=== PATIENT | female | born 1955 | race Caucasian/White ===

== ENCOUNTER 2022-04-11 15:17 | Inpatient (IN) | payer BC ==
[~2022-04-11] VITALS: Ht 165.1 cm; Wt 66.7 kg
[2022-04-11] MEDS ORDERED: HEPARIN/D5W DRIP 500 ML IV PRN (17:15)
[2022-04-11 17:53] LABS: CREATININE 0.8 mg/dL (0.6-1.3); POTASSIUM 4.2 mmol/L (3.5-5.1)
[2022-04-11 18:03] LABS: BILIRUBIN,DIRECT 0.1 mg/dL (0.0-0.2); BILIRUBIN,TOTAL 0.3 mg/dL (0.2-1.0); TOTAL PROTEIN, SERUM 7.2 g/dL (6.4-8.2)
[2022-04-11 18:22] LABS: HEMATOCRIT 34.2 % (31.2-41.9); MEAN CORPUSCULAR HEMOGLOBIN 29.1 uug (24.7-32.8); MEAN CORPUSCULAR VOLUME 87.1 fL (75.5-95.3); PLATELET COUNT (AUTO) 387 K/uL (179-408)
[2022-04-11] MEDS ORDERED: ENOXAPARIN SODIUM 80 MG/0.8 ML DISP.SYRIN SQ ONE ×2 (19:00→19:23)
--- NOTE | 2022-04-11 19:00 | NUR ---
Assumed care of patient from day shift RN.
--- NOTE | 2022-04-11 19:30 | NUR ---
Patient came into the ER, reported she was seen by her mill operator today, was told to go to ER for doppler to rule out DVT.
--- NOTE | 2022-04-11 21:28 | NUR ---
PAGED EPIC PROJECT ADMINISTRATOR FOR ADMISSION, WAITING FOR DR DEVI TO CALL BACK.
--- NOTE | 2022-04-11 21:29 | NUR ---
DR LIZAMA SPEAKING WITH DR DEVI.
--- NOTE | 2022-04-11 22:00 | NUR ---
Spoke to marketing program manager Bri and stated that they will try to transfer patient to [facility]. COVID result fax to Den[facility] per request.
[2022-04-11] MEDS ORDERED: HYDROCODONE/APAP 5-325MG TABLET PO ONE (22:15)
[2022-04-11] MEDS ORDERED: HYDROCODONE/APAP 5-325MG TABLET ONE (22:28)
[2022-04-11] MEDS ORDERED: MAGNESIUM HYDROXIDE 30 ML LIQUID UDC PO PRN (23:15)
[2022-04-11] MEDS ORDERED: REMEDY ESSENTIAL ZINC PASTE 113 GM TP PRN (23:15)
[2022-04-11] MEDS ORDERED: ONDANSETRON 4 MG/2 ML VIAL IV PRN (23:15)
--- NOTE | 2022-04-11 23:23 | NUR ---
Patient now agreeable to be transferred to [facility], informed grain operations manager Bri and will notify Dr. Aguilar.
--- NOTE | 2022-04-11 23:33 | NUR ---
Dr. Hernandez on panel call with Dr. Aguilar.
--- NOTE | 2022-04-12 00:34 | NUR ---
Assisted patient into the toilet.
--- NOTE | 2022-04-12 00:50 | NUR ---
Follow up with special education case manager Lindsey, awaiting for bed at [facility].
--- NOTE | 2022-04-12 01:52 | NUR ---
microbiology lab manager Lindsey called and stated that she is still waiting for [facility] to give her a bed, as they are busy running a code at this time.
--- NOTE | 2022-04-12 02:14 | NUR ---
Dr. Hernandez on bedside.
--- NOTE | 2022-04-12 02:38 | NUR ---
Telephone call from DARREN Portillo, stated that they are still awaiting bed from [facility] and at the same time will have a peer to peer at [facility] ED.
--- NOTE | 2022-04-12 04:10 | NUR ---
[place] from [facility] transfer center called, request peer to peer with Dr. Hernandez. Transfer call to Dr Hernandez.
--- NOTE | 2022-04-12 04:21 | NUR ---
PATIENT ASLEEP AT THIS TIME. APPEARS COMFORTABLE. IN NO APPARENT DISTRESS.
--- NOTE | 2022-04-12 04:44 | NUR ---
Telephone call from Lindsey and stated there are no beds available at [facility] or [facility]. Patient authorized to stay here.
[2022-04-12 07:31] LABS: HEMATOCRIT 36.6 % (31.2-41.9); MEAN CORPUSCULAR HEMOGLOBIN 28.6 uug (24.7-32.8); MEAN CORPUSCULAR VOLUME 87.3 fL (75.5-95.3); PLATELET COUNT (AUTO) 486 K/uL (179-408)
[2022-04-12] MEDS ORDERED: PANTOPRAZOLE SODIUM 40 MG TABLET.DR PO ONE (07:38)
[2022-04-12] MEDS: PANTOPRAZOLE SODIUM 40 MG TABLET.DR PO SCH (07:43)
[2022-04-12 07:44] LABS: CREATININE 0.8 mg/dL (0.6-1.3); PHOSPHOROUS 4.7 mg/dL (2.5-4.9); POTASSIUM 4.5 mmol/L (3.5-5.1)
--- NOTE | 2022-04-12 08:17 | NUR ---
Report given to Julienne OCONNELL. All belongings are with patient as documented. Transferring via gurney to Room 329/Left ED in stable condition. VSS
[2022-04-12 09:56] VITALS: BP 106/61
--- NOTE | 2022-04-12 10:00 | NUR ---
Received pt from ER, pt in bed wit her son at bedside, pt is irritated. States she has no pain but tired of waiting.
[2022-04-12] MEDS: ENOXAPARIN SODIUM 80 MG/0.8 ML DISP.SYRIN SQ SCH ×2 (11:26→21:13)
[2022-04-12 12:30] LABS: IRON, SERUM 28 ug/dL (50-175)
[2022-04-12 12:47] LABS: FERRITIN 134 ng/mL (8-252)
[2022-04-12] MEDS ORDERED: IOHEXOL 350 100 ML INFUS..BTL ONE (13:01)
[2022-04-12] MEDS ORDERED: IV NORMAL SALINE 250 ML IV ONE (13:01)
[2022-04-12] MEDS ORDERED: SWABABLE VALVE TRANSFER SET EA MC ONE (13:01)
--- NOTE | 2022-04-12 13:30 | NUR ---
Patient is in a peaceful mood, all needs re met, states she has no pain, no distress noted. Leia Wallace talked to her about her DVT. Patient is going to CT Angio of chest now.
--- NOTE | 2022-04-12 14:10 | NUR ---
Patient came back from CT angio, I took her orthostatics as was asked by Leia Wallace. lyin/63, p 87. Sitting 121/63, p 95 Standing 99/60, p 95. Leia Wallace recommended to give fluids to the patient. Normal saline 0.9 IV bolus 1000 ml. Will administer now and monitor her blood pressure.
[2022-04-12] MEDS ORDERED: IV NS 1000 ML 1,000 ML IV ONE (14:30)
[2022-04-12] MEDS: HYDROCODONE/APAP 5-325MG TABLET PO PRN ×2 (15:25→21:17)
[2022-04-12 15:54] VITALS: BP 98/61
[2022-04-12 20:00] VITALS: BP 103/48
[2022-04-13 04:00] VITALS: BP 111/59
[2022-04-13] MEDS: PANTOPRAZOLE SODIUM 40 MG TABLET.DR PO SCH (07:03)
[2022-04-13 08:30] VITALS: BP 104/57
[2022-04-13 09:43] LABS: MEAN CORPUSCULAR HEMOGLOBIN 28.6 uug (24.7-32.8); MEAN CORPUSCULAR VOLUME 88.3 fL (75.5-95.3); PLATELET COUNT (AUTO) 524 K/uL (179-408)
[2022-04-13 09:48] LABS: CREATININE 0.8 mg/dL (0.6-1.3); MAGNESIUM 1.9 mg/dL (1.8-2.4); PHOSPHOROUS 3.6 mg/dL (2.5-4.9); POTASSIUM 4.2 mmol/L (3.5-5.1)
[2022-04-13] MEDS: ENOXAPARIN SODIUM 80 MG/0.8 ML DISP.SYRIN SQ SCH ×2 (10:15→22:21)
[2022-04-13 11:58] VITALS: BP 106/69
[2022-04-13] MEDS: FERROUS SULFATE 325 MG TABEC PO SCH ×2 (15:07→22:19)
[2022-04-13 16:07] VITALS: BP 117/72
[2022-04-13 21:20] VITALS: BP 107/54
[2022-04-13] MEDS: HYDROCODONE/APAP 5-325MG TABLET PO PRN (22:34)
[2022-04-14] MEDS: ACETAMINOPHEN 325 MG TABLET PO PRN ×2 (01:21→12:50)
[2022-04-14 04:00] VITALS: BP 120/63
[2022-04-14] MEDS: PANTOPRAZOLE SODIUM 40 MG TABLET.DR PO SCH (06:51)
[2022-04-14 08:28] LABS: HEMATOCRIT 35.8 % (31.2-41.9); MEAN CORPUSCULAR HEMOGLOBIN 28.9 uug (24.7-32.8); PLATELET COUNT (AUTO) 610 K/uL (179-408)
[2022-04-14 08:53] LABS: CREATININE 0.8 mg/dL (0.6-1.3); POTASSIUM 4.2 mmol/L (3.5-5.1)
[2022-04-14] MEDS: FERROUS SULFATE 325 MG TABEC PO SCH (09:33)
[2022-04-14] MEDS: ENOXAPARIN SODIUM 80 MG/0.8 ML DISP.SYRIN SQ SCH (09:34)
[2022-04-14] MEDS ORDERED: APIX5TAB PO (10:55)
[2022-04-14 12:00] VITALS: BP 131/59
--- NOTE | 2022-04-14 13:00 | NUR ---
Pt is discharged. Pt saturates at 96
--- NOTE | 2022-04-14 14:20 | NUR ---
Pt is discharged home, all personal belongings at hand, all discharge education provided. Pt has been wheeled downstairs, picked up by sister. IV and ID bands removed. No signs of acute distress. Pt saturates at 97% on room air.
== END 2022-04-14 13:00 | disposition home or self-care (01) | DRG 299 ==
LOC: ER 15:17 → TRANSITION 04-12 07:16 → MEDSURG3 04-12 08:25
PROVIDERS: ADMIT Registered Nurse; ATTEND Registered Nurse
DX: I82.462 Acute embolism and thrombosis of left calf muscular vein (principal); I26.99 Other pulmonary embolism without acute cor pulmonale; C34.11 Malignant neoplasm of upper lobe, right bronchus or lung; I31.39 Other pericardial effusion (noninflammatory); C79.89 Secondary malignant neoplasm of other specified sites; D75.839 Thrombocytosis, unspecified; E61.1 Iron deficiency; E88.09 Other disorders of plasma-protein metabolism, not elsewhere classified; Z86.73 Personal history of transient ischemic attack (TIA), and cerebral infarction without residual deficits; Z86.718 Personal history of other venous thrombosis and embolism; Z87.891 Personal history of nicotine dependence; J44.9 Chronic obstructive pulmonary disease, unspecified; Z20.822 Contact with and (suspected) exposure to COVID-19
CPT/HCPCS: 36415; 71275; 83550; 83735; 84100; 85025; 85730; 93307; A4663; G0378; J1650; J7040; Q9967